=== PATIENT | female | born 1965 | race Hispanic/Latino ===

== ENCOUNTER 2021-08-19 12:15 | Inpatient (IN) | payer MEDICARE ==
--- NOTE | 2021-08-20 09:13 | History and Physical Report ---
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 PAST PSYCHIATRIC HISTORY: Diagnoses: bipolar Suicide attempts or Self-harm behavior: yes Prior psychiatric hospitalizations: yes Substance Abuse history: denies Previous psychiatric medications tried: latuda, invega Outpatient treatment: yes PAST MEDICAL HISTORY: None reported or document Family Psychiatric History: None reported or documented SOCIAL HISTORY Marital Status: Living Arrangements: lives alone with act team Employment Status: Disabled Access to guns/weapons: Denies Education: History of Abuse: Denies Legal History: unknown REVIEW OF SYSTEMS Constitutional: Negative for weight loss ENT: Negative for stridor Respiratory: Negative for cough or hemoptysis All other systems reviewed and are negative MENTAL STATUS EXAMINATION General Appearance and Behavior: Age appropriate, good hygiene, wearing appropriate clothes. calm, cooperative, fair eye contact Cooperation: Cooperative Psychomotor Behavior: Psychomotor normal Mood: depressed Affect and affective range: Congruent with stated mood Thought Process: goal directed Thought Content: None Speech: normal tone and pace Suicidal Ideation: Yes Homicidal Ideation:Denies Hallucinations: auditory Delusions: None elicited Impulse Control: limited Insight and Judgment: Limited Memory: Limited Attention: attentive Orientation: a/o Assessment (1) Bipolar Disorder Treatment Plan Patient admitted for inpatient psychiatric evaluation, medication adjustment and close monitoring The patient's behavior, mood, sleep and appetite will be closely monitored. Patient enrolled in individual and group therapeutic sessions and encouraged to attend. Patient provided with a safe and structured environment. Patient's physical health needs will be addressed by the Hospitalist. Hospitalist Consulted Labs including CBC, CMP, Lipid profile and Hemoglobin A1C levels ordered for baseline reference Social Assessment will be completed and the Patient Clerical Assistant will work with patient and family to ensure a suitable and safe disposition Medication adjustment will be made as clinically indicated Restart home meds Usual Wellness Taoist/Preservation: - Start Trazodone 50 mg po QHS & 50 mg po QHS PRN between 10 PM & 2 AM for insomnia - Start Melatonin 5 mg po QHS to promote circadian rhythm The patient agreed on the treatment plan, understood the risk, benefit, alternative treatment, potential consequence of no treatment, and gave informed consent. Estimated days: 7 Post hospital care: primary care provider, psychiatric provider Case staffed with Dr. Ortiz Legal Status: Voluntary Reaction to Hospitalization: Accepting Medications and Allergies Allergies Allergy/AdvReac Type Severity Reaction Status Date / Time codeine Allergy Unknown Unverified 08/19/21 12:23 Sulfa (Sulfonamide Allergy Unknown Unverified 08/19/21 12:23 Antibiotics) Results - Results Labs/Vitals: Laboratory Last Values POC Glucose 184 mg/dL (70-105) H 08/20/21 06:44 Last Vital Signs Temp 98.9 F 08/20/21 00:37 Pulse 108 H 08/20/21 00:37 Resp 18 08/20/21 00:37 BP 113/71 08/20/21 00:37 Pulse Ox 95 08/20/21 00:37 Physical Examination - Constitutional Vitals: Vital Signs Temp Pulse Resp BP Pulse Ox 98.9 F 108 H 18 113/71 95 08/20/21 00:37 08/20/21 00:37 08/20/21 00:37 08/20/21 00:37 08/20/21 00:37 Temperature -Last 24 Hours Temperature 98.9 F Mental Status Exam - Vital signs Last Vital Signs Temp 98.9 F 08/20/21 00:37 Pulse 108 H 08/20/21 00:37 Resp 18 08/20/21 00:37 BP 113/71 08/20/21 00:37 Pulse Ox 95 08/20/21 00:37 Physician Certification - Certification Statement Physician Certification Statement: This is an acknowledgement statement that SHERRIE ORTIZ is a 56 year old F who requires inpatient psychiatric admission for treatment which could r easonably be expected to improve the patient's condition for Estimated period of time patient will need to remain in the hospital: [ ] Plan for post-hospital care: [ ]
[2021-08-20] MEDS ORDERED: FLU VACC QUAD 2021-22(6MOS UP)/PF 60 MCG/0.5 ML SYRINGE IM ONE ×2 (12:00→14:15)
[2021-08-20] MEDS ORDERED: DEXTROSE 50% IN WATER (25GM) 50 ML SYRINGE IV PRN (12:26)
--- NOTE | 2021-08-20 12:26 | Consultation ---
History of Present Illness - Reason for Consult Consult date: 08/20/21 Medical management Requesting physician: DARRIUS WALKER - History of Present Illness 56 YO Female with DM, HTN, Hypothyroidism, Obesity Hypoventilation Syndrome, CKD admitted to [facility] for psychiatric stabilization. Consult placed by Dr. Walker for medical management. Patient seen and evaluated in the recreation room. No reported nursing events. Patient denies fever, chills, chest pain, palpitation, productive cough, skin rash, recent contact, or known exposure to COVID-19. Patient denies pain. Past History Past Medical History: diabetes, hypertension, renal failure, other (See HPI) Past Surgical History: , Other (ablation) Social history: single. denies: smoking, alcohol abuse Family history: diabetes, hypertension Medications and Allergies Allergies Allergy/AdvReac Type Severity Reaction Status Date / Time codeine Allergy Unknown Unverified 08/19/21 12:23 Sulfa (Sulfonamide Allergy Unknown Unverified 08/19/21 12:23 Antibiotics) Review of Systems Constitutional: no weight loss, no weight gain, no fever, no chills Ears, nose, mouth and throat: no ear discharge, no tinnitis, no nose pain, no nasal discharge Breasts: no change in shape, no swelling, no mass Cardiovascular: no chest pain, no palpitations, no edema Respiratory: no cough, no excessive sputum, no shortness of breath Gastrointestinal: no abdominal pain, no vomiting Genitourinary Female: no pelvic pain, no flank pain Musculoskeletal: no neck stiffness, no neck pain, no arm numbness/tingling, no shooting leg pain Integumentary: no rash, no redness, no wounds, no boils Neurological: no head injury, no weakness, no parathesias, no tingling, no syncope Psychiatric: no anxiety Endocrine: no cold intolerance, no heat intolerance, no polyphagia Hematologic/Lymphatic: no easy bruising Exam - Constitutional Vitals: Temp Pulse Resp BP Pulse Ox 98.9 F 108 H 18 113/71 95 08/20/21 00:37 08/20/21 00:37 08/20/21 00:37 08/20/21 00:37 08/20/21 00:37 General appearance: Present: no acute distress, well-nourished - EENT Eyes: Present: PERRL ENT: hearing intact, clear oral mucosa - Neck Neck: Present: supple, normal ROM - Respiratory Respiratory effort: normal Respiratory: bilateral: CTA - Cardiovascular Heart Sounds: Present: S1 & S2. Absent: rub, click - Extremities Extremities: pulses symmetrical, No edema Peripheral Pulses: within normal limits - Abdominal General gastrointestinal: Present: soft, non-tender, non-distended, normal bowel sounds Female genitourinary: Present: normal - Integumentary Integumentary: Present: clear, warm, dry - Musculoskeletal Musculoskeletal: gait normal, strength equal bilaterally - Psychiatric Psychiatric: appropriate mood/affect, intact judgment & insight - Neurologic Neurologic: CNII-XII intact, moves all extremities Results - Labs Labs: Abnormal lab results 08/20/21 08/20/21 08/20/21 Range/Units 02:37 06:44 11:34 POC Glucose 161 H 184 H 322 H (70-105) mg/dL Assessment and Plan - Patient Problems (1) Hypertension Current Visit: Yes Status: Acute Qualifiers: Hypertension type: primary hypertension Qualified Code(s): I10 - Essential (primary) hypertension Plan to address problem: Monitor blood pressure every shift, continue medical management. (2) Diabetes Current Visit: Yes Status: Acute Plan to address problem: Consistent carbohydrate diet, sliding scale insulin therapy, Accu-Chek, hypoglycemia protocol, (3) Obesity hypoventilation syndrome Current Visit: Yes Status: Acute Plan to address problem: Balanced diet, increase physical activity discharge, outpatient pulmonary follow-up for sleep study, CPAP nightly (4) Hypothyroidism Current Visit: Yes Status: Acute Plan to address problem: Continue prehospital Synthroid therapy. (5) CKD (chronic kidney disease) Current Visit: Yes Status: Acute Plan to address problem: Outpatient nephrology follow-up, diabetes control.
[2021-08-20] MEDS: INSULIN LISPRO 100 UNIT/ML SUB-Q SCH ×2 (12:47→20:02)
[2021-08-21] MEDS: INSULIN LISPRO 100 UNIT/ML SUB-Q SCH ×5 (03:38→21:43)
--- NOTE | 2021-08-21 08:02 | Progress Note ---
Subjective Date of service: 08/21/21 Subjective Comment: The patient was seen in her room, she reports doing well. She reports that she is worried about her heart pills and blood thinner."She reports sleep and appetitie as good. She continues to endorse auditory hallucinations " I still hear whispers. She denies suicidal/homicidal hallucinations. SOCIAL HISTORY Marital Status: Living Arrangements: lives alone with act team Employment Status: Disabled Access to guns/weapons: Denies Education: History of Abuse: Denies Legal History: unknown REVIEW OF SYSTEMS Constitutional: Negative for weight loss ENT: Negative for stridor Respiratory: Negative for cough or hemoptysis All other systems reviewed and are negative MENTAL STATUS EXAMINATION General Appearance and Behavior: Age appropriate, good hygiene, wearing appropriate clothes. calm, cooperative, fair eye contact Cooperation: Cooperative Psychomotor Behavior: Psychomotor normal Mood: depressed Affect and affective range: Congruent with stated mood Thought Process: goal directed Thought Content: Not suicidal Speech: normal tone and pace Suicidal Ideation: Denies Homicidal Ideation:Denies Hallucinations: auditory Delusions: None elicited Impulse Control: limited Insight and Judgment: Limited Memory: Limited Attention: attentive Orientation: a/o Assessment (1) Bipolar Disorder Treatment Plan Patient admitted for inpatient psychiatric evaluation, medication adjustment and close monitoring The patient's behavior, mood, sleep and appetite will be closely monitored. Patient enrolled in individual and group therapeutic sessions and encouraged to attend. Patient provided with a safe and structured environment. Patient's physical health needs will be addressed by the Hospitalist. Hospitalist Consulted Labs including CBC, CMP, Lipid profile and Hemoglobin A1C levels ordered for baseline reference Social Assessment will be completed and the Communications Lead will work with pat ient and family to ensure a suitable and safe disposition Medication adjustment will be made as clinically indicated Continue home meds Usual Wellness Restorationism/Preservation: - Start Trazodone 50 mg po QHS & 50 mg po QHS PRN between 10 PM & 2 AM for insomnia - Start Melatonin 5 mg po QHS to promote circadian rhythm The patient agreed on the treatment plan, understood the risk, benefit, alternative treatment, potential consequence of no treatment, and gave informed consent. Estimated days: 6 Post hospital care: primary care provider, psychiatric provider Case staffed with Dr. Ortiz Legal Status: Voluntary Reaction to Hospitalization: Accepting Medications and Allergies Medications and Allergies Allergies Allergy/AdvReac Type Severity Reaction Status Date / Time codeine Allergy Mild Nausea Verified 08/21/21 03:51 Sulfa (Sulfonamide Allergy Mild Nausea Verified 08/21/21 03:51 Antibiotics) Home Medications Medication Instructions Recorded Confirmed Last Taken Type Apixaban [Eliquis] 5 mg PO BID 08/21/21 08/21/21 Unknown History Diltiazem HCl [Diltiazem 12Hr ER] 60 mg PO BID 08/21/21 08/21/21 Unknown History Docusate Sodium [Colace] 100 mg PO BID PRN 08/21/21 08/21/21 Unknown History Duloxetine HCl [Drizalma Sprinkle] 60 mg PO BID 08/21/21 08/21/21 Unknown History Furosemide [Lasix] 40 mg PO DAILY 08/21/21 08/21/21 Unknown History Gabapentin [Neurontin] 300 mg PO Q8HR 08/21/21 08/21/21 Unknown History Levothyroxine [Synthroid] 100 mcg PO QAM 08/21/21 08/21/21 Unknown History Lurasidone HCl [Latuda] 60 mg PO DAILY 08/21/21 08/21/21 Unknown History Metformin HCl [Metformin HCl ER] 750 mg PO DAILY 08/21/21 08/21/21 Unknown History Metoprolol [Lopressor TAB] 50 mg PO BID 08/21/21 08/21/21 Unknown History Mirtazapine [Remeron] 15 mg PO HS 08/21/21 08/21/21 Unknown History Nystatin Cream [Mycostatin Cream] 1 applic TP BID 08/21/21 08/21/21 Unknown History Rosuvastatin Calcium [Crestor] 10 mg PO HS 08/21/21 08/21/21 Unknown History lamoTRIgine [LaMICtal] 200 mg PO BID 08/21/21 08/21/21 Unknown History traZODone [Desyrel] 100 mg PO QHS 08/21/21 08/21/21 Unknown History trihexyphenidyL [Artane Tab] 2 mg PO DAILY 08/21/21 08/21/21 Unknown History Active Meds: Active Medications Dextrose (Dextrose 50% In Water (25gm) 50 Ml Syringe) 50 ml IV Q30MIN PRN; Protocol PRN Reason: Hypoglycemia Insulin Human Lispro (Insulin Lispro 100 Unit/Ml) 0 unit SUB-Q Q6HR REBECA; Protocol Last Admin: 08/21/21 06:05 Dose: 8 unit Documented by: Results - Results Labs/Vitals: Laboratory Last Values POC Glucose 368 mg/dL (70-105) H 08/21/21 05:47 Last Vital Signs Temp 98.2 F 08/20/21 19:41 Pulse 68 08/20/21 23:30 Resp 18 08/20/21 23:30 BP 148/86 08/20/21 19:41 Pulse Ox 96 08/20/21 23:30
[2021-08-21 09:27] LABS: Basophils # (Auto) 0.1 K/mm3 (0.0-0.1); Basophils % (Auto) 0.8 % (0.0-1.8); Eosinophils # (Auto) 0.3 K/mm3 (0.0-0.4); Eosinophils % (Auto) 5.5 % (0.0-4.3); Hematocrit 40.2 % (30.3-42.9); Hemoglobin 13.7 gm/dl (10.1-14.3); Lymphocytes # (Auto) 1.4 K/mm3 (1.2-5.4); Lymphocytes % (Auto) 21.7 % (13.4-35.0); Mean Corpuscular HGB Conc 34 % (30-34); Mean Corpuscular Volume 85 fl (79-97); Monocytes # (Auto) 0.4 K/mm3 (0.0-0.8); Platelet Count 202 K/mm3 (140-440); Red Blood Count 4.75 M/mm3 (3.65-5.03); Red Cell Distribution Width 15.2 % (13.2-15.2)
[2021-08-21 09:55] LABS: Alanine Aminotransferase 14 units/L (7-56); Albumin 4.1 g/dL (3.9-5); BUN/Creatinine Ratio 26; Blood Urea Nitrogen 21 mg/dL (7-17); Calcium 10.1 mg/dL (8.4-10.2); Chol/HDL Ratio 4.34 %; HDL Cholesterol 52 mg/dL (40-59); Hemolysis Index 2; LDL Cholesterol,Direct 147 mg/dL (50-130)
[2021-08-21] MEDS ORDERED: LURASIDONE HCL 60 MG PO SCH (10:00)
[2021-08-21] MEDS ORDERED: NON-FORMULARY EACH (Duloxetine Hcl [Drizalma Sprinkle] 60 MG Cap.Dr.Spr) PO SCH (10:00)
[2021-08-21] MEDS ORDERED: METFORMIN HCL 750 MG PO SCH (10:00)
[2021-08-21] MEDS ORDERED: DILTIAZEM HCL 60 MG PO SCH (10:00)
[2021-08-21] MEDS ORDERED: NON-FORMULARY EACH (Lamotrigine [Lamictal] 200 MG Tablet) PO SCH (10:00)
[2021-08-21] MEDS ORDERED: NON-FORMULARY EACH (Apixaban 5 MG Tablet) PO SCH (10:00)
[2021-08-21] MEDS ORDERED: DOCUSATE SODIUM 100 MG CAP PO PRN (10:00)
[2021-08-21] MEDS: METOPROLOL TARTRATE 50 MG TAB PO SCH ×2 (10:01→21:38)
[2021-08-21] MEDS: FUROSEMIDE 40 MG TAB PO SCH (10:03)
[2021-08-21] MEDS: NYSTATIN CREAM 15 GM TUBE TP SCH ×2 (10:03→21:36)
[2021-08-21] MEDS: lamoTRIgine 100 MG TAB PO SCH ×2 (10:04→21:36)
[2021-08-21] MEDS ORDERED: LORazepam 2 MG/ML VIAL IV PRN (11:03)
[2021-08-21] MEDS ORDERED: HALOPERIDOL LACTATE 5 MG/1 ML INJ IM PRN (11:12)
[2021-08-21] MEDS: GABAPENTIN 300 MG CAP PO SCH ×2 (13:16→21:36)
[2021-08-21] MEDS: TRIHEXYPHENIDYL 2 MG TAB PO SCH (13:16)
[2021-08-21] MEDS: dilTIAZem 60 MG TAB PO SCH ×2 (13:16→21:37)
[2021-08-21] MEDS: DULoxetine 30 MG CAP PO SCH ×2 (13:16→21:35)
[2021-08-21] MEDS: APIXABAN 5 MG TAB PO SCH ×2 (13:24→21:36)
[2021-08-21] MEDS: metFORMIN 500 MG TAB PO SCH (13:28)
[2021-08-21] MEDS: MIRTAZAPINE 15 MG TAB PO SCH (21:36)
[2021-08-21] MEDS: traZODone 100 MG TAB PO SCH (21:39)
[2021-08-21] MEDS ORDERED: NON-FORMULARY EACH (Rosuvastatin Calcium [Crestor] 10 MG Tablet) PO SCH (22:00)
[2021-08-22] MEDS: INSULIN LISPRO 100 UNIT/ML SUB-Q SCH ×5 (02:21→22:14)
[2021-08-22] MEDS: LEVOTHYROXINE 100 MCG TAB PO SCH (05:02)
[2021-08-22] MEDS: GABAPENTIN 300 MG CAP PO SCH ×3 (05:02→21:23)
--- NOTE | 2021-08-22 08:53 | Progress Note ---
Subjective Date of service: 08/22/21 Subjective Comment: 08/21/2021:The patient was seen in her room, she reports doing well. She reports that she is worried about her heart pills and blood thinner."She reports sleep and appetitie as good. She continues to endorse auditory hallucinations " I still hear whispers. She denies suicidal/homicidal hallucinations. 08/22/2021: The patient was seen socializing with peers at breakfast. She states she received her monthly Abilify Maintenna BASSETT through the ACT team; last had it a couple of days prior to this admission. The patient reports that she feels better, states sleep and appetite as good. The patient states mood as "ok". She denies any current suicidal/homicidal ideation and denies hallucinations. SOCIAL HISTORY Marital Status: Living Arrangements: lives alone with act team Employment Status: Disabled Access to guns/weapons: Denies Education: History of Abuse: Denies Legal History: unknown REVIEW OF SYSTEMS Constitutional: Negative for weight loss ENT: Negative for stridor Respiratory: Negative for cough or hemoptysis All other systems reviewed and are negative MENTAL STATUS EXAMINATION General Appearance and Behavior: Age appropriate, good hygiene, wearing appropriate clothes. calm, cooperative, fair eye contact Cooperation: Cooperative Psychomotor Behavior: Psychomotor normal Mood: "ok" Affect and affective range: Congruent with stated mood Thought Process: goal directed Thought Content: Not suicidal Speech: normal tone and pace Suicidal Ideation: Denies Homicidal Ideation:Denies Hallucinations: Denies Delusions: None elicited Impulse Control: limited Insight and Judgment: Limited Memory: Limited Attention: attentive Orientation: a/o Assessment (1) Bipolar Disorder Treatment Plan Patient admitted for inpatient psychiatric evaluation, medication adjustment and close monitoring The patient's behavior, mood, sleep and appetite will be closely monitored. Patient enrolled in individual and group therapeutic sessions and encouraged to attend. Patient provided with a safe and structured environment. Patient's physical health needs will be addressed by the Hospitalist. Hospitalist Consulted Labs including CBC, CMP, Lipid profile and Hemoglobin A1C levels ordered for baseline reference Social Assessment will be completed and the Preload Supervisor will work with patient and family to ensure a suitable and safe disposition Medication adjustment will be made as clinically indicated Continue home meds Usual Wellness Jew/Preservation: - Start Trazodone 50 mg po QHS & 50 mg po QHS PRN between 10 PM & 2 AM for insomnia - Start Melatonin 5 mg po QHS to promote circadian rhythm The patient agreed on the treatment plan, understood the risk, benefit, alternative treatment, potential consequence of no treatment, and gave informed consent. Estimated days: 5 Post hospital care: primary care provider, psychiatric provider Case staffed with Dr. Ortiz Legal Status: Voluntary Reaction to Hospitalization: Accepting Medications and Allergies Medications and Allergies Allergies Allergy/AdvReac Type Severity Reaction Status Date / Time codeine Allergy Mild Nausea Verified 08/21/21 03:51 Sulfa (Sulfonamide Allergy Mild Nausea Verified 08/21/21 03:51 Antibiotics) Home Medications Medication Instructions Recorded Confirmed Last Taken Type Apixaban [Eliquis] 5 mg PO BID 08/21/21 08/21/21 Unknown History Diltiazem HCl [Diltiazem 12Hr ER] 60 mg PO BID 08/21/21 08/21/21 Unknown History Docusate Sodium [Colace] 100 mg PO BID PRN 08/21/21 08/21/21 Unknown History Duloxetine HCl [Drizalma Sprinkle] 60 mg PO BID 08/21/21 08/21/21 Unknown History Furosemide [Lasix] 40 mg PO DAILY 08/21/21 08/21/21 Unknown History Gabapentin [Neurontin] 300 mg PO Q8HR 08/21/21 08/21/21 Unknown History Levothyroxine [Synthroid] 100 mcg PO QAM 08/21/21 08/21/21 Unknown History Lurasidone HCl [Latuda] 60 mg PO DAILY 08/21/21 08/21/21 Unknown History Metformin HCl [Metformin HCl ER] 750 mg PO DAILY 08/21/21 08/21/21 Unknown History Metoprolol [Lopressor TAB] 50 mg PO BID 08/21/21 08/21/21 Unknown History Mirtazapine [Remeron] 15 mg PO HS 08/21/21 08/21/21 Unknown History Nystatin Cream [Mycostatin Cream] 1 applic TP BID 08/21/21 08/21/21 Unknown History Rosuvastatin Calcium [Crestor] 10 mg PO HS 08/21/21 08/21/21 Unknown History lamoTRIgine [LaMICtal] 200 mg PO BID 08/21/21 08/21/21 Unknown History traZODone [Desyrel] 100 mg PO QHS 08/21/21 08/21/21 Unknown History trihexyphenidyL [Artane Tab] 2 mg PO DAILY 08/21/21 08/21/21 Unknown History Active Meds: Active Medications Apixaban (Apixaban 5 Mg Tab) 5 mg PO BID [facility] Last Admin: 08/21/21 21:36 Dose: 5 mg Documented by: Atorvastatin Calcium (Atorvastatin 20 Mg Tab) 20 mg PO QHS [facility] Last Admin: 08/21/21 21:37 Dose: 20 mg Documented by: Dextrose (Dextrose 50% In Water (25gm) 50 Ml Syringe) 50 ml IV Q30MIN PRN; Protocol PRN Reason: Hypoglycemia Diltiazem HCl (Diltiazem 60 Mg Tab) 60 mg PO BID [facility] Last Admin: 08/21/21 21:37 Dose: 60 mg Documented by: Docusate Sodium (Docusate Sodium 100 Mg Cap) 100 mg PO BID PRN PRN Reason: Constipation Duloxetine HCl (Duloxetine 30 Mg Cap) 60 mg PO BID [facility] Last Admin: 08/21/21 21:35 Dose: 60 mg Documented by: Furosemide (Furosemide 40 Mg Tab) 40 mg PO DAILY [facility] Last Admin: 08/21/21 10:03 Dose: 40 mg Documented by: Gabapentin (Gabapentin 300 Mg Cap) 300 mg PO Q8HR [facility] Last Admin: 08/22/21 05:02 Dose: 300 mg Documented by: Haloperidol Lactate (Haloperidol Lactate 5 Mg/1 Ml Inj) 5 mg IM Q6H PRN PRN Reason: Agitation Last Admin: 08/21/21 11:30 Dose: 5 mg Documented by: Insulin Human Lispro (Insulin Lispro 100 Unit/Ml) 0 unit SUB-Q Q6H [facility]; Protocol Last Admin: 08/22/21 02:21 Dose: 10 unit Documented by: Lamotrigine (Lamotrigine 100 Mg Tab) 200 mg PO BID [facility] Last Admin: 08/21/21 21:36 Dose: 200 mg Documented by: Levothyroxine Sodium (Levothyroxine 100 Mcg Tab) 100 mcg PO DAILY@0600 [facility] Last Admin: 08/22/21 05:02 Dose: 100 mcg Documented by: Lorazepam (Lorazepam 2 Mg/Ml Vial) 2 mg IV Q4H PRN PRN Reason: Agitation Last Admin: 08/21/21 11:30 Dose: 2 mg Documented by: Metformin HCl (Metformin 500 Mg Tab) 750 mg PO QDAY [facility] Last Admin: 08/21/21 13:28 Dose: 750 mg Documented by: Metoprolol Tartrate (Metoprolol Tartrate 50 Mg Tab) 50 mg PO BID [facility] Last Admin: 08/21/21 21:38 Dose: 50 mg Documented by: Mirtazapine (Mirtazapine 15 Mg Tab) 15 mg PO HS [facility] Last Admin: 08/21/21 21:36 Dose: 15 mg Documented by: Miscellaneous Medication (Latuda 60 Mg Tab) 1 each PO QDAY [facility] Nystatin (Nystatin Cream 15 Gm Tube) 1 applic TP BID [facility] Last Admin: 08/21/21 21:36 Dose: Not Given Documented by: Trazodone HCl (Trazodone 100 Mg Tab) 100 mg PO QHS [facility] Last Admin: 08/21/21 21:39 Dose: 100 mg Documented by: Trihexyphenidyl HCl (Trihexyphenidyl 2 Mg Tab) 2 mg PO DAILY [facility] Last Admin: 08/21/21 13:16 Dose: 2 mg Documented by: Results - Results Labs/Vitals: Laboratory Last Values WBC 6.3 K/mm3 (4.5-11.0) 08/21/21 08:46 RBC 4.75 M/mm3 (3.65-5.03) 08/21/21 08:46 Hgb 13.7 gm/dl (10.1-14.3) 08/21/21 08:46 Hct 40.2 % (30.3-42.9) 08/21/21 08:46 MCV 85 fl (79-97) 08/21/21 08:46 MCH 29 pg (28-32) 08/21/21 08:46 MCHC 34 % (30-34) 08/21/21 08:46 RDW 15.2 % (13.2-15.2) 08/21/21 08:46 Plt Count 202 K/mm3 (140-440) 08/21/21 08:46 Lymph % (Auto) 21.7 % (13.4-35.0) 08/21/21 08:46 [place] % (Auto) 7.0 % (0.0-7.3) 08/21/21 08:46 Eos % (Auto) 5.5 % (0.0-4.3) H 08/21/21 08:46 Baso % (Auto) 0.8 % (0.0-1.8) 08/21/21 08:46 Lymph # (Auto) 1.4 K/mm3 (1.2-5.4) 08/21/21 08:46 [place] # (Auto) 0.4 K/mm3 (0.0-0.8) 08/21/21 08:46 Eos # (Auto) 0.3 K/mm3 (0.0-0.4) 08/21/21 08:46 Baso # (Auto) 0.1 K/mm3 (0.0-0.1) 08/21/21 08:46 Seg Neutrophils % 65.0 % (40.0-70.0) 08/21/21 08:46 Seg Neutrophils # 4.1 K/mm3 (1.8-7.7) 08/21/21 08:46 Sodium 139 mmol/L (137-145) 08/21/21 08:46 Potassium 5.6 mmol/L (3.6-5.0) H 08/21/21 08:46 Chloride 97.6 mmol/L (98-107) L 08/21/21 08:46 Carbon Dioxide 27 mmol/L (22-30) 08/21/21 08:46 Anion Gap 20 mmol/L 08/21/21 08:46 BUN 21 mg/dL (7-17) H 08/21/21 08:46 Creatinine 0.8 mg/dL (0.6-1.2) 08/21/21 08:46 Estimated GFR > 60 ml/min 08/21/21 08:46 BUN/Creatinine Ratio 26 % 08/21/21 08:46 Glucose 355 mg/dL (65-100) H 08/21/21 08:46 POC Glucose 314 mg/dL (70-105) H 08/22/21 06:23 Hemoglobin A1c 10.6 % (4-6) H 08/21/21 08:42 Calcium 10.1 mg/dL (8.4-10.2) 08/21/21 08:46 Total Bilirubin 0.40 mg/dL (0.1-1.2) 08/21/21 08:46 AST 14 units/L (5-40) 08/21/21 08:46 ALT 14 units/L (7-56) 08/21/21 08:46 Alkaline Phosphatase 124 units/L (35-129) 08/21/21 08:46 Total Protein 7.6 g/dL (6.3-8.2) 08/21/21 08:46 Albumin 4.1 g/dL (3.9-5) 08/21/21 08:46 Albumin/Globulin Ratio 1.2 % 08/21/21 08:46 Triglycerides 165 mg/dL (2-149) H 08/21/21 08:46 Cholesterol 226 mg/dL (50-199) H 08/21/21 08:46 LDL Cholesterol Direct 147 mg/dL (50-130) H 08/21/21 08:46 HDL Cholesterol 52 mg/dL (40-59) 08/21/21 08:46 Cholesterol/HDL Ratio 4.34 % 08/21/21 08:46 TSH 1.270 mlU/mL (0.270-4.200) 08/21/21 08:46 Last Vital Signs Temp 98.3 F 08/21/21 22:50 Pulse 82 08/21/21 21:38 Resp 16 08/21/21 19:41 BP 126/70 08/21/21 21:38 Pulse Ox 95 08/21/21 19:41
[2021-08-22] MEDS: DULoxetine 30 MG CAP PO SCH ×2 (09:24→21:22)
[2021-08-22] MEDS: metFORMIN 500 MG TAB PO SCH (09:24)
[2021-08-22] MEDS: APIXABAN 5 MG TAB PO SCH ×2 (09:25→21:23)
[2021-08-22] MEDS: METOPROLOL TARTRATE 50 MG TAB PO SCH ×2 (09:25→21:24)
[2021-08-22] MEDS: lamoTRIgine 100 MG TAB PO SCH ×2 (09:25→21:23)
[2021-08-22] MEDS: FUROSEMIDE 40 MG TAB PO SCH (09:26)
[2021-08-22] MEDS: LATUDA 60 MG PO SCH (09:26)
[2021-08-22] MEDS: TRIHEXYPHENIDYL 2 MG TAB PO SCH (11:06)
[2021-08-22] MEDS: NYSTATIN CREAM 15 GM TUBE TP SCH ×2 (11:06→21:24)
[2021-08-22] MEDS: dilTIAZem 60 MG TAB PO SCH ×2 (11:11→21:19)
[2021-08-22] MEDS ORDERED: INSULIN GLARGINE 100 UNITS/ML SUB-Q SCH ×2 (12:00→22:36)
[2021-08-22] MEDS: traZODone 100 MG TAB PO SCH (21:22)
[2021-08-22] MEDS: MIRTAZAPINE 15 MG TAB PO SCH (21:24)
[2021-08-23] MEDS: LEVOTHYROXINE 100 MCG TAB PO SCH (06:52)
[2021-08-23] MEDS: GABAPENTIN 300 MG CAP PO SCH ×3 (06:52→22:10)
[2021-08-23] MEDS: INSULIN LISPRO 100 UNIT/ML SUB-Q SCH ×3 (07:05→22:07)
--- NOTE | 2021-08-23 07:54 | Progress Note ---
Subjective Date of service: 08/23/21 Subjective Comment: 08/21/2021:The patient was seen in her room, she reports doing well. She reports that she is worried about her heart pills and blood thinner."She reports sleep and appetitie as good. She continues to endorse auditory hallucinations " I s till hear whispers. She denies suicidal/homicidal hallucinations. 08/22/2021: The patient was seen socializing with peers at breakfast. She states she received her monthly Abilify Maintenna BASSETT through the ACT team; last had it a couple of days prior to this admission. The patient reports that she feels better, states sleep and appetite as good. The patient states mood as "ok". She denies any current suicidal/homicidal ideation and denies hallucinations. 08/23/2021: The patient was seen eating breakfast. She reports feeling better. She denies any current suicidal/homicidal ideation and denies hallucinations. SOCIAL HISTORY Marital Status: Living Arrangements: lives alone with act team Employment Status: Disabled Access to guns/weapons: Denies Education: History of Abuse: Denies Legal History: unknown REVIEW OF SYSTEMS Constitutional: Negative for weight loss ENT: Negative for stridor Respiratory: Negative for cough or hemoptysis All other systems reviewed and are negative MENTAL STATUS EXAMINATION General Appearance and Behavior: Age appropriate, good hygiene, wearing appropriate clothes. calm, cooperative, fair eye contact Cooperation: Cooperative Psychomotor Behavior: Psychomotor normal Mood: "good" Affect and affective range: Congruent with stated mood Thought Process: goal directed Thought Content: Not suicidal Speech: normal tone and pace Suicidal Ideation: Denies Homicidal Ideation:Denies Hallucinations: Denies Delusions: None elicited Impulse Control: limited Insight and Judgment: Limited Memory: Limited Attention: attentive Orientation: a/o Assessment (1) Bipolar Disorder Treatment Plan Patient admitted for inpatient psychiatric evaluation, medication adjustment and close monitoring The patient's behavior, mood, sleep and appetite will be closely monitored. Patient enrolled in individual and group therapeutic sessions and encouraged to attend. Patient provided with a safe and structured environment. Patient's physical health needs will be addressed by the Hospitalist. Hospitalist Consulted Labs including CBC, CMP, Lipid profile and Hemoglobin A1C levels ordered for baseline reference Social Assessment will be completed and the [facility] will work with patient and family to ensure a suitable and safe disposition Medication adjustment will be made as clinically indicated Continue home meds Usual Wellness [employer]ostalism/Preservation: - Start Trazodone 50 mg po QHS & 50 mg po QHS PRN between 10 PM & 2 AM for insomnia - Start Melatonin 5 mg po QHS to promote circadian rhythm The patient agreed on the treatment plan, understood the risk, benefit, alternative treatment, potential consequence of no treatment, and gave informed consent. Estimated days: 5 Post hospital care: primary care provider, psychiatric provider Case staffed with Dr. Ortiz Legal Status: Voluntary Reaction to Hospitalization: Accepting Medications and Allergies Medications and Allergies Allergies Allergy/AdvReac Type Severity Reaction Status Date / Time codeine Allergy Mild Nausea Verified 08/21/21 03:51 Sulfa (Sulfonamide Allergy Mild Nausea Verified 08/21/21 03:51 Antibiotics) Home Medications Medication Instructions Recorded Confirmed Last Taken Type Apixaban [Eliquis] 5 mg PO BID 08/21/21 08/21/21 Unknown History Diltiazem HCl [Diltiazem 12Hr ER] 60 mg PO BID 08/21/21 08/21/21 Unknown History Docusate Sodium [Colace] 100 mg PO BID PRN 08/21/21 08/21/21 Unknown History Duloxetine HCl [Drizalma Sprinkle] 60 mg PO BID 08/21/21 08/21/21 Unknown History Furosemide [Lasix] 40 mg PO DAILY 08/21/21 08/21/21 Unknown History Gabapentin [Neurontin] 300 mg PO Q8HR 08/21/21 08/21/21 Unknown History Levothyroxine [Synthroid] 100 mcg PO QAM 08/21/21 08/21/21 Unknown History Lurasidone HCl [Latuda] 60 mg PO DAILY 08/21/21 08/21/21 Unknown History Metformin HCl [Metformin HCl ER] 750 mg PO DAILY 08/21/21 08/21/21 Unknown History Metoprolol [Lopressor TAB] 50 mg PO BID 08/21/21 08/21/21 Unknown History Mirtazapine [Remeron] 15 mg PO HS 08/21/21 08/21/21 Unknown History Nystatin Cream [Mycostatin Cream] 1 applic TP BID 08/21/21 08/21/21 Unknown History Rosuvastatin Calcium [Crestor] 10 mg PO HS 08/21/21 08/21/21 Unknown History lamoTRIgine [LaMICtal] 200 mg PO BID 08/21/21 08/21/21 Unknown History traZODone [Desyrel] 100 mg PO QHS 08/21/21 08/21/21 Unknown History trihexyphenidyL [Artane Tab] 2 mg PO DAILY 08/21/21 08/21/21 Unknown History Active Meds: Active Medications Apixaban (Apixaban 5 Mg Tab) 5 mg PO BID [facility] Last Admin: 08/22/21 21:23 Dose: 5 mg Documented by: Atorvastatin Calcium (Atorvastatin 20 Mg Tab) 20 mg PO QHS [facility] Last Admin: 08/22/21 21:23 Dose: 20 mg Documented by: Dextrose (Dextrose 50% In Water (25gm) 50 Ml Syringe) 50 ml IV Q30MIN PRN; Protocol PRN Reason: Hypoglycemia Diltiazem HCl (Diltiazem 60 Mg Tab) 60 mg PO BID [facility] Last Admin: 08/22/21 21:19 Dose: 60 mg Documented by: Docusate Sodium (Docusate Sodium 100 Mg Cap) 100 mg PO BID PRN PRN Reason: Constipation Duloxetine HCl (Duloxetine 30 Mg Cap) 60 mg PO BID [facility] Last Admin: 08/22/21 21:22 Dose: 60 mg Documented by: Furosemide (Furosemide 40 Mg Tab) 40 mg PO DAILY [facility] Last Admin: 08/22/21 09:26 Dose: 40 mg Documented by: Gabapentin (Gabapentin 300 Mg Cap) 300 mg PO Q8HR [facility] Last Admin: 08/23/21 06:52 Dose: 300 mg Documented by: Haloperidol Lactate (Haloperidol Lactate 5 Mg/1 Ml Inj) 5 mg IM Q6H PRN PRN Reason: Agitation Last Admin: 08/21/21 11:30 Dose: 5 mg Documented by: Insulin Glargine (Insulin Glargine 100 Units/Ml) 45 units SUB-Q QAMDIAB [facility] Insulin Human Lispro (Insulin Lispro 100 Unit/Ml) 0 unit SUB-Q Q6H [facility]; Protocol Last Admin: 08/23/21 07:05 Dose: 10 unit Documented by: Lamotrigine (Lamotrigine 100 Mg Tab) 200 mg PO BID [facility] Last Admin: 08/22/21 21:23 Dose: 200 mg Documented by: Levothyroxine Sodium (Levothyroxine 100 Mcg Tab) 100 mcg PO DAILY@0600 [facility] Last Admin: 08/23/21 06:52 Dose: 100 mcg Documented by: Lorazepam (Lorazepam 2 Mg/Ml Vial) 2 mg IV Q4H PRN PRN Reason: Agitation Last Admin: 08/21/21 11:30 Dose: 2 mg Documented by: Metformin HCl (Metformin 500 Mg Tab) 750 mg PO QDAY [facility] Last Admin: 08/22/21 09:24 Dose: 750 mg Documented by: Metoprolol Tartrate (Metoprolol Tartrate 50 Mg Tab) 50 mg PO BID [facility] Last Admin: 08/22/21 21:24 Dose: 50 mg Documented by: Mirtazapine (Mirtazapine 15 Mg Tab) 15 mg PO HS [facility] Last Admin: 08/22/21 21:24 Dose: 15 mg Documented by: Miscellaneous Medication (Latuda 60 Mg Tab) 1 each PO QDAY [facility] Last Admin: 08/22/21 09:26 Dose: 1 each Documented by: Nystatin (Nystatin Cream 15 Gm Tube) 1 applic TP BID [facility] Last Admin: 08/22/21 21:24 Dose: 1 applic Documented by: Trazodone HCl (Trazodone 100 Mg Tab) 100 mg PO QHS [facility] Last Admin: 08/22/21 21:22 Dose: 100 mg Documented by: Trihexyphenidyl HCl (Trihexyphenidyl 2 Mg Tab) 2 mg PO DAILY [facility] Last Admin: 08/22/21 11:06 Dose: 2 mg Documented by: Results - Results Labs/Vitals: Laboratory Last Values WBC 6.3 K/mm3 (4.5-11.0) 08/21/21 08:46 RBC 4.75 M/mm3 (3.65-5.03) 08/21/21 08:46 Hgb 13.7 gm/dl (10.1-14.3) 08/21/21 08:46 Hct 40.2 % (30.3-42.9) 08/21/21 08:46 MCV 85 fl (79-97) 08/21/21 08:46 MCH 29 pg (28-32) 08/21/21 08:46 MCHC 34 % (30-34) 08/21/21 08:46 RDW 15.2 % (13.2-15.2) 08/21/21 08:46 Plt Count 202 K/mm3 (140-440) 08/21/21 08:46 Lymph % (Auto) 21.7 % (13.4-35.0) 08/21/21 08:46 [place] % (Auto) 7.0 % (0.0-7.3) 08/21/21 08:46 Eos % (Auto) 5.5 % (0.0-4.3) H 08/21/21 08:46 Baso % (Auto) 0.8 % (0.0-1.8) 08/21/21 08:46 Lymph # (Auto) 1.4 K/mm3 (1.2-5.4) 08/21/21 08:46 [place] # (Auto) 0.4 K/mm3 (0.0-0.8) 08/21/21 08:46 Eos # (Auto) 0.3 K/mm3 (0.0-0.4) 08/21/21 08:46 Baso # (Auto) 0.1 K/mm3 (0.0-0.1) 08/21/21 08:46 Seg Neutrophils % 65.0 % (40.0-70.0) 08/21/21 08:46 Seg Neutrophils # 4.1 K/mm3 (1.8-7.7) 08/21/21 08:46 Sodium 139 mmol/L (137-145) 08/21/21 08:46 Potassium 5.6 mmol/L (3.6-5.0) H 08/21/21 08:46 Chloride 97.6 mmol/L (98-107) L 08/21/21 08:46 Carbon Dioxide 27 mmol/L (22-30) 08/21/21 08:46 Anion Gap 20 mmol/L 08/21/21 08:46 BUN 21 mg/dL (7-17) H 08/21/21 08:46 Creatinine 0.8 mg/dL (0.6-1.2) 08/21/21 08:46 Estimated GFR > 60 ml/min 08/21/21 08:46 BUN/Creatinine Ratio 26 % 08/21/21 08:46 Glucose 355 mg/dL (65-100) H 08/21/21 08:46 POC Glucose 423 mg/dL (70-105) H 08/23/21 07:00 Hemoglobin A1c 10.6 % (4-6) H 08/21/21 08:42 Calcium 10.1 mg/dL (8.4-10.2) 08/21/21 08:46 Total Bilirubin 0.40 mg/dL (0.1-1.2) 08/21/21 08:46 AST 14 units/L (5-40) 08/21/21 08:46 ALT 14 units/L (7-56) 08/21/21 08:46 Alkaline Phosphatase 124 units/L (35-129) 08/21/21 08:46 Total Protein 7.6 g/dL (6.3-8.2) 08/21/21 08:46 Albumin 4.1 g/dL (3.9-5) 08/21/21 08:46 Albumin/Globulin Ratio 1.2 % 08/21/21 08:46 Triglycerides 165 mg/dL (2-149) H 08/21/21 08:46 Cholesterol 226 mg/dL (50-199) H 08/21/21 08:46 LDL Cholesterol Direct 147 mg/dL (50-130) H 08/21/21 08:46 HDL Cholesterol 52 mg/dL (40-59) 08/21/21 08:46 Cholesterol/HDL Ratio 4.34 % 08/21/21 08:46 TSH 1.270 mlU/mL (0.270-4.200) 08/21/21 08:46 Last Vital Signs Temp 98.6 F 08/22/21 19:35 Pulse 81 08/23/21 04:00 Resp 20 08/23/21 04:00 BP 122/68 08/23/21 04:00 Pulse Ox 94 08/23/21 04:00
[2021-08-23] MEDS: FUROSEMIDE 40 MG TAB PO SCH (10:03)
[2021-08-23] MEDS: APIXABAN 5 MG TAB PO SCH ×2 (10:04→22:09)
[2021-08-23] MEDS: NYSTATIN CREAM 15 GM TUBE TP SCH ×2 (10:04→22:11)
[2021-08-23] MEDS: lamoTRIgine 100 MG TAB PO SCH ×2 (10:04→22:08)
[2021-08-23] MEDS: metFORMIN 500 MG TAB PO SCH (10:04)
[2021-08-23] MEDS: METOPROLOL TARTRATE 50 MG TAB PO SCH ×2 (10:05→22:09)
[2021-08-23] MEDS: dilTIAZem 60 MG TAB PO SCH ×2 (10:05→22:05)
[2021-08-23] MEDS: TRIHEXYPHENIDYL 2 MG TAB PO SCH (10:05)
[2021-08-23] MEDS: DULoxetine 30 MG CAP PO SCH ×2 (10:06→22:08)
[2021-08-23] MEDS: LATUDA 60 MG PO SCH (10:06)
[2021-08-23] MEDS: INSULIN GLARGINE 100 UNITS/ML SUB-Q SCH (10:12)
--- NOTE | 2021-08-23 12:31 | Progress Note ---
Assessment and Plan - Patient Problems (1) Hypertension Current Visit: Yes Status: Acute Qualifiers: Hypertension type: primary hypertension Qualified Code(s): I10 - Essential (primary) hypertension Plan to address problem: Monitor blood pressure every shift, continue medical management. (2) Diabetes Current Visit: Yes Status: Acute Plan to address problem: Consistent carbohydrate diet, sliding scale insulin therapy, Accu-Chek, hypoglycemia protocol, (3) Obesity hypoventilation syndrome Current Visit: Yes Status: Acute Plan to address problem: Balanced diet, increase physical activity discharge, outpatient pulmonary follow-up for sleep study, CPAP nightly (4) Hypothyroidism Current Visit: Yes Status: Acute Plan to address problem: Continue prehospital Synthroid therapy. (5) CKD (chronic kidney disease) Current Visit: Yes Status: Acute Plan to address problem: Outpatient nephrology follow-up, diabetes control. History Interval history: 56 YO Female with DM, HTN, Hypothyroidism, Obesity Hypoventilation Syndrome, CKD admitted to [facility] for psychiatric stabilization. Patient seen and evaluated in the recreation room. No reported nursing events. Patient denies pain. Hospitalist Physical - Constitutional Vitals: Temp Pulse Resp BP Pulse Ox 98.7 F 65 18 123/63 96 08/23/21 08:07 08/23/21 10:05 08/23/21 08:07 08/23/21 10:05 08/23/21 08:07 General appearance: Present: no acute distress, well-nourished - EENT Eyes: Present: PERRL ENT: hearing intact - Neck Neck: Present: supple - Respiratory Respiratory effort: normal Respiratory: bilateral: CTA - Cardiovascular Rhythm: regular Heart Sounds: Present: S1 & S2 - Extremities Extremities: no ischemia Peripheral Pulses: within normal limits - Abdominal General gastrointestinal: soft, non-tender, non-distended - Integumentary Integumentary: Present: clear, dry - Psychiatric Psychiatric: cooperative - Neurologic Neurologic: CNII-XII intact Results - Labs CBC & Chem 7: 08/21/21 08:46 08/21/21 08:46 Labs: Laboratory Last Values WBC 6.3 K/mm3 (4.5-11.0) 08/21/21 08:46 RBC 4.75 M/mm3 (3.65-5.03) 08/21/21 08:46 Hgb 13.7 gm/dl (10.1-14.3) 08/21/21 08:46 Hct 40.2 % (30.3-42.9) 08/21/21 08:46 MCV 85 fl (79-97) 08/21/21 08:46 MCH 29 pg (28-32) 08/21/21 08:46 MCHC 34 % (30-34) 08/21/21 08:46 RDW 15.2 % (13.2-15.2) 08/21/21 08:46 Plt Count 202 K/mm3 (140-440) 08/21/21 08:46 Lymph % (Auto) 21.7 % (13.4-35.0) 08/21/21 08:46 [place] % (Auto) 7.0 % (0.0-7.3) 08/21/21 08:46 Eos % (Auto) 5.5 % (0.0-4.3) H 08/21/21 08:46 Baso % (Auto) 0.8 % (0.0-1.8) 08/21/21 08:46 Lymph # (Auto) 1.4 K/mm3 (1.2-5.4) 08/21/21 08:46 [place] # (Auto) 0.4 K/mm3 (0.0-0.8) 08/21/21 08:46 Eos # (Auto) 0.3 K/mm3 (0.0-0.4) 08/21/21 08:46 Baso # (Auto) 0.1 K/mm3 (0.0-0.1) 08/21/21 08:46 Seg Neutrophils % 65.0 % (40.0-70.0) 08/21/21 08:46 Seg Neutrophils # 4.1 K/mm3 (1.8-7.7) 08/21/21 08:46 Sodium 139 mmol/L (137-145) 08/21/21 08:46 Potassium 5.6 mmol/L (3.6-5.0) H 08/21/21 08:46 Chloride 97.6 mmol/L (98-107) L 08/21/21 08:46 Carbon Dioxide 27 mmol/L (22-30) 08/21/21 08:46 Anion Gap 20 mmol/L 08/21/21 08:46 BUN 21 mg/dL (7-17) H 08/21/21 08:46 Creatinine 0.8 mg/dL (0.6-1.2) 08/21/21 08:46 Estimated GFR > 60 ml/min 08/21/21 08:46 BUN/Creatinine Ratio 26 % 08/21/21 08:46 Glucose 355 mg/dL (65-100) H 08/21/21 08:46 POC Glucose 411 mg/dL (70-105) H 08/23/21 11:21 Hemoglobin A1c 10.6 % (4-6) H 08/21/21 08:42 Calcium 10.1 mg/dL (8.4-10.2) 08/21/21 08:46 Total Bilirubin 0.40 mg/dL (0.1-1.2) 08/21/21 08:46 AST 14 units/L (5-40) 08/21/21 08:46 ALT 14 units/L (7-56) 08/21/21 08:46 Alkaline Phosphatase 124 units/L (35-129) 08/21/21 08:46 Total Protein 7.6 g/dL (6.3-8.2) 08/21/21 08:46 Albumin 4.1 g/dL (3.9-5) 08/21/21 08:46 Albumin/Globulin Ratio 1.2 % 08/21/21 08:46 Triglycerides 165 mg/dL (2-149) H 08/21/21 08:46 Cholesterol 226 mg/dL (50-199) H 08/21/21 08:46 LDL Cholesterol Direct 147 mg/dL (50-130) H 08/21/21 08:46 HDL Cholesterol 52 mg/dL (40-59) 08/21/21 08:46 Cholesterol/HDL Ratio 4.34 % 08/21/21 08:46 TSH 1.270 mlU/mL (0.270-4.200) 08/21/21 08:46 Lin/IV: Voiding Method Toilet Active Medications - Current Medications Current Medications: Generic Name Dose Route Start Last Admin Trade Name Freq PRN Reason Stop Dose Admin Apixaban 5 mg 08/21/21 10:00 08/23/21 10:04 Apixaban 5 Mg Tab PO 5 mg BID REBECA Administration Atorvastatin Calcium 20 mg 08/21/21 22:00 08/22/21 21:23 Atorvastatin 20 Mg Tab PO 20 mg QHS REBECA Administration Dextrose 50 ml 08/20/21 12:26 Dextrose 50% In Water (25gm) 50 Ml Syringe IV Q30MIN PRN Hypoglycemia Protocol Diltiazem HCl 60 mg 08/21/21 10:00 08/23/21 10:05 Diltiazem 60 Mg Tab PO 60 mg BID REBECA Administration Docusate Sodium 100 mg 08/21/21 10:00 Docusate Sodium 100 Mg Cap PO BID PRN Constipation Duloxetine HCl 60 mg 08/21/21 10:00 08/23/21 10:06 Duloxetine 30 Mg Cap PO 60 mg BID REBECA Administration Furosemide 40 mg 08/21/21 10:00 08/23/21 10:03 Furosemide 40 Mg Tab PO 40 mg DAILY REBECA Administration Gabapentin 300 mg 08/21/21 14:00 08/23/21 06:52 Gabapentin 300 Mg Cap PO 300 mg Q8HR REBECA Administration Haloperidol Lactate 5 mg 08/21/21 11:12 08/21/21 11:30 Haloperidol Lactate 5 Mg/1 Ml Inj IM 5 mg Q6H PRN Administration Agitation Insulin Glargine 45 units 08/23/21 08:00 08/23/21 10:12 Insulin Glargine 100 Units/Ml SUB-Q Not Given QAMDIAB [facility] Insulin Human Lispro 0 unit 08/21/21 14:00 08/23/21 10:06 Insulin Lispro 100 Unit/Ml SUB-Q Not Given Q6H REBECA Protocol Lamotrigine 200 mg 08/21/21 10:00 08/23/21 10:04 Lamotrigine 100 Mg Tab PO 200 mg BID REBECA Administration Levothyroxine Sodium 100 mcg 08/22/21 06:00 08/23/21 06:52 Levothyroxine 100 Mcg Tab PO 100 mcg DAILY@0600 REBECA Administration Lorazepam 2 mg 08/21/21 11:03 08/21/21 11:30 Lorazepam 2 Mg/Ml Vial IV 2 mg Q4H PRN Administration Agitation Metformin HCl 750 mg 08/21/21 10:00 08/23/21 10:04 Metformin 500 Mg Tab PO 750 mg QDAY REBECA Administration Metoprolol Tartrate 50 mg 08/21/21 10:00 08/23/21 10:05 Metoprolol Tartrate 50 Mg Tab PO 50 mg BID REBECA Administration Mirtazapine 15 mg 08/21/21 22:00 08/22/21 21:24 Mirtazapine 15 Mg Tab PO 15 mg HS REBECA Administration Miscellaneous Medication 1 each 08/22/21 10:00 08/23/21 10:06 Latuda 60 Mg Tab PO 1 each QDAY REBECA Administration Nystatin 1 applic 08/21/21 10:00 08/23/21 10:04 Nystatin Cream 15 Gm Tube TP 1 applic BID REBECA Administration Trazodone HCl 100 mg 08/21/21 22:00 08/22/21 21:22 Trazodone 100 Mg Tab PO 100 mg QHS REBECA Administration Trihexyphenidyl HCl 2 mg 08/21/21 10:00 08/23/21 10:05 Trihexyphenidyl 2 Mg Tab PO 2 mg DAILY REBECA Administration
--- NOTE | 2021-08-23 20:00 | Progress Note ---
Assessment and Plan - Patient Problems (1) Hypertension Current Visit: Yes Status: Acute Qualifiers: Hypertension type: primary hypertension Qualified Code(s): I10 - Essential (primary) hypertension Plan to address problem: Monitor blood pressure every shift, continue medical management. (2) Diabetes Current Visit: Yes Status: Acute Plan to address problem: Consistent carbohydrate diet, sliding scale insulin therapy, Accu-Chek, hypoglycemia protocol, (3) Obesity hypoventilation syndrome Current Visit: Yes Status: Acute Plan to address problem: Balanced diet, increase physical activity discharge, outpatient pulmonary follow-up for sleep study, CPAP nightly (4) Hypothyroidism Current Visit: Yes Status: Acute Plan to address problem: Continue prehospital Synthroid therapy. (5) CKD (chronic kidney disease) Current Visit: Yes Status: Acute Plan to address problem: Outpatient nephrology follow-up, diabetes control. History Interval history: 56 YO Female with DM, HTN, Hypothyroidism, Obesity Hypoventilation Syndrome, CKD admitted to [facility] for psychiatric stabilization. Patient seen and evaluated in the recreation room. No reported nursing events. Patient denies pain. Hospitalist Physical - Constitutional Vitals: Temp Pulse Resp BP Pulse Ox 98.7 F 65 18 123/63 96 08/23/21 08:07 08/23/21 10:05 08/23/21 08:07 08/23/21 10:05 08/23/21 08:07 General appearance: Present: no acute distress, well-nourished - EENT Eyes: Present: PERRL, EOM intact ENT: hearing decreased - Neck Neck: Present: supple - Respiratory Respiratory effort: normal Respiratory: bilateral: CTA - Cardiovascular Rhythm: regular Heart Sounds: Present: S1 & S2 - Extremities Extremities: no ischemia Peripheral Pulses: within normal limits - Abdominal General gastrointestinal: soft, non-tender, non-distended - Integumentary Integumentary: Present: clear, dry - Psychiatric Psychiatric: cooperative - Neurologic Neurologic: CNII-XII intact Results - Labs CBC & Chem 7: 08/21/21 08:46 08/21/21 08:46 Labs: Laboratory Last Values WBC 6.3 K/mm3 (4.5-11.0) 08/21/21 08:46 RBC 4.75 M/mm3 (3.65-5.03) 08/21/21 08:46 Hgb 13.7 gm/dl (10.1-14.3) 08/21/21 08:46 Hct 40.2 % (30.3-42.9) 08/21/21 08:46 MCV 85 fl (79-97) 08/21/21 08:46 MCH 29 pg (28-32) 08/21/21 08:46 MCHC 34 % (30-34) 08/21/21 08:46 RDW 15.2 % (13.2-15.2) 08/21/21 08:46 Plt Count 202 K/mm3 (140-440) 08/21/21 08:46 Lymph % (Auto) 21.7 % (13.4-35.0) 08/21/21 08:46 [place] % (Auto) 7.0 % (0.0-7.3) 08/21/21 08:46 Eos % (Auto) 5.5 % (0.0-4.3) H 08/21/21 08:46 Baso % (Auto) 0.8 % (0.0-1.8) 08/21/21 08:46 Lymph # (Auto) 1.4 K/mm3 (1.2-5.4) 08/21/21 08:46 [place] # (Auto) 0.4 K/mm3 (0.0-0.8) 08/21/21 08:46 Eos # (Auto) 0.3 K/mm3 (0.0-0.4) 08/21/21 08:46 Baso # (Auto) 0.1 K/mm3 (0.0-0.1) 08/21/21 08:46 Seg Neutrophils % 65.0 % (40.0-70.0) 08/21/21 08:46 Seg Neutrophils # 4.1 K/mm3 (1.8-7.7) 08/21/21 08:46 Sodium 139 mmol/L (137-145) 08/21/21 08:46 Potassium 5.6 mmol/L (3.6-5.0) H 08/21/21 08:46 Chloride 97.6 mmol/L (98-107) L 08/21/21 08:46 Carbon Dioxide 27 mmol/L (22-30) 08/21/21 08:46 Anion Gap 20 mmol/L 08/21/21 08:46 BUN 21 mg/dL (7-17) H 08/21/21 08:46 Creatinine 0.8 mg/dL (0.6-1.2) 08/21/21 08:46 Estimated GFR > 60 ml/min 08/21/21 08:46 BUN/Creatinine Ratio 26 % 08/21/21 08:46 Glucose 355 mg/dL (65-100) H 08/21/21 08:46 POC Glucose 374 mg/dL (70-105) H 08/23/21 16:07 Hemoglobin A1c 10.6 % (4-6) H 08/21/21 08:42 Calcium 10.1 mg/dL (8.4-10.2) 08/21/21 08:46 Total Bilirubin 0.40 mg/dL (0.1-1.2) 08/21/21 08:46 AST 14 units/L (5-40) 08/21/21 08:46 ALT 14 units/L (7-56) 08/21/21 08:46 Alkaline Phosphatase 124 units/L (35-129) 08/21/21 08:46 Total Protein 7.6 g/dL (6.3-8.2) 08/21/21 08:46 Albumin 4.1 g/dL (3.9-5) 08/21/21 08:46 Albumin/Globulin Ratio 1.2 % 08/21/21 08:46 Triglycerides 165 mg/dL (2-149) H 08/21/21 08:46 Cholesterol 226 mg/dL (50-199) H 08/21/21 08:46 LDL Cholesterol Direct 147 mg/dL (50-130) H 08/21/21 08:46 HDL Cholesterol 52 mg/dL (40-59) 08/21/21 08:46 Cholesterol/HDL Ratio 4.34 % 08/21/21 08:46 TSH 1.270 mlU/mL (0.270-4.200) 08/21/21 08:46 Lin/IV: Voiding Method Toilet Active Medications - Current Medications Current Medications: Generic Name Dose Route Start Last Admin Trade Name Freq PRN Reason Stop Dose Admin Apixaban 5 mg 08/21/21 10:00 08/23/21 10:04 Apixaban 5 Mg Tab PO 5 mg BID REBECA Administration Atorvastatin Calcium 20 mg 08/21/21 22:00 08/22/21 21:23 Atorvastatin 20 Mg Tab PO 20 mg QHS REBECA Administration Dextrose 50 ml 08/20/21 12:26 Dextrose 50% In Water (25gm) 50 Ml Syringe IV Q30MIN PRN Hypoglycemia Protocol Diltiazem HCl 60 mg 08/21/21 10:00 08/23/21 10:05 Diltiazem 60 Mg Tab PO 60 mg BID REBECA Administration Docusate Sodium 100 mg 08/21/21 10:00 Docusate Sodium 100 Mg Cap PO BID PRN Constipation Duloxetine HCl 60 mg 08/21/21 10:00 08/23/21 10:06 Duloxetine 30 Mg Cap PO 60 mg BID REBECA Administration Furosemide 40 mg 08/21/21 10:00 08/23/21 10:03 Furosemide 40 Mg Tab PO 40 mg DAILY REBECA Administration Gabapentin 300 mg 08/21/21 14:00 08/23/21 14:11 Gabapentin 300 Mg Cap PO 300 mg Q8HR REBECA Administration Haloperidol Lactate 5 mg 08/21/21 11:12 08/21/21 11:30 Haloperidol Lactate 5 Mg/1 Ml Inj IM 5 mg Q6H PRN Administration Agitation Insulin Glargine 45 units 08/23/21 08:00 08/23/21 10:12 Insulin Glargine 100 Units/Ml SUB-Q Not Given QAMDIAB [facility] Insulin Human Lispro 0 unit 08/21/21 14:00 08/23/21 10:06 Insulin Lispro 100 Unit/Ml SUB-Q Not Given Q6H REBECA Protocol Lamotrigine 200 mg 08/21/21 10:00 08/23/21 10:04 Lamotrigine 100 Mg Tab PO 200 mg BID REBECA Administration Levothyroxine Sodium 100 mcg 08/22/21 06:00 08/23/21 06:52 Levothyroxine 100 Mcg Tab PO 100 mcg DAILY@0600 REBECA Administration Lorazepam 2 mg 08/21/21 11:03 08/21/21 11:30 Lorazepam 2 Mg/Ml Vial IV 2 mg Q4H PRN Administration Agitation Metformin HCl 750 mg 08/21/21 10:00 08/23/21 10:04 Metformin 500 Mg Tab PO 750 mg QDAY REBECA Administration Metoprolol Tartrate 50 mg 08/21/21 10:00 08/23/21 10:05 Metoprolol Tartrate 50 Mg Tab PO 50 mg BID REBECA Administration Mirtazapine 15 mg 08/21/21 22:00 08/22/21 21:24 Mirtazapine 15 Mg Tab PO 15 mg HS REBECA Administration Miscellaneous Medication 1 each 08/22/21 10:00 08/23/21 10:06 Latuda 60 Mg Tab PO 1 each QDAY REBECA Administration Nystatin 1 applic 08/21/21 10:00 08/23/21 10:04 Nystatin Cream 15 Gm Tube TP 1 applic BID REBECA Administration Trazodone HCl 100 mg 08/21/21 22:00 08/22/21 21:22 Trazodone 100 Mg Tab PO 100 mg QHS REBECA Administration Trihexyphenidyl HCl 2 mg 08/21/21 10:00 08/23/21 10:05 Trihexyphenidyl 2 Mg Tab PO 2 mg DAILY REBECA Administration
[2021-08-23] MEDS: traZODone 100 MG TAB PO SCH (22:09)
[2021-08-23] MEDS: MIRTAZAPINE 15 MG TAB PO SCH (22:10)
[2021-08-24] MEDS: GABAPENTIN 300 MG CAP PO SCH ×3 (06:35→21:35)
[2021-08-24] MEDS: LEVOTHYROXINE 100 MCG TAB PO SCH (06:38)
--- NOTE | 2021-08-24 08:40 | Progress Note ---
Subjective Date of service: 08/24/21 Subjective Comment: 08/21/2021:The patient was seen in her room, she reports doing well. She reports that she is worried about her heart pills and blood thinner."She reports sleep and appetitie as good. She continues to endorse auditory hallucinations " I still hear whispers. She denies suicidal/homicidal hallucinations. 08/22/2021: The patient was seen socializing with peers at breakfast. She states she received her monthly Abilify Mainvannessana BASSETT through the ACT team; last had it a couple of days prior to this admission. The patient reports that she feels better, states sleep and appetite as good. The patient states mood as "ok". She denies any current suicidal/homicidal ideation and denies hallucinations. 08/23/2021: The patient was seen eating breakfast. She reports feeling better. She denies any current suicidal/homicidal ideation and denies hallucinations. 08/24/2021: She reports doing well. She denies any current suicidal/homicidal ideation and denies hallucinations. SOCIAL HISTORY Marital Status: Living Arrangements: lives alone with act team Employment Status: Disabled Access to guns/weapons: Denies Education: History of Abuse: Denies Legal History: unknown REVIEW OF SYSTEMS Constitutional: Negative for weight loss ENT: Negative for stridor Respiratory: Negative for cough or hemoptysis All other systems reviewed and are negative MENTAL STATUS EXAMINATION General Appearance and Behavior: Age appropriate, good hygiene, wearing appropriate clothes. calm, cooperative, fair eye contact Cooperation: Cooperative Psychomotor Behavior: Psychomotor normal Mood: "ok" Affect and affective range: Congruent with stated mood Thought Process: goal directed Thought Content: Not suicidal Speech: normal tone and pace Suicidal Ideation: Denies Homicidal Ideation:Denies Hallucinations: Denies Delusions: None elicited Impulse Control: limited Insight and Judgment: Limited Memory: Limited Attention: attentive Orientation: a/o Assessment (1) Bipolar Disorder Treatment Plan Patient admitted for inpatient psychiatric evaluation, medication adjustment and close monitoring The patient's behavior, mood, sleep and appetite will be closely monitored. Patient enrolled in individual and group therapeutic sessions and encouraged to attend. Patient provided with a safe and structured environment. Patient's physical health needs will be addressed by the Hospitalist. Hospitalist Consulted Labs including CBC, CMP, Lipid profile and Hemoglobin A1C levels ordered for baseline reference Social Assessment will be completed and the Tow Truck Dispatcher will work with patient and family to ensure a suitable and safe disposition Medication adjustment will be made as clinically indicated Continue home meds Usual Wellness Adventist/Preservation: - Start Trazodone 50 mg po QHS & 50 mg po QHS PRN between 10 PM & 2 AM for insomnia - Start Melatonin 5 mg po QHS to promote circadian rhythm The patient agreed on the treatment plan, understood the risk, benefit, alter point lay ira treatment, potential consequence of no treatment, and gave informed consent. Estimated days: 5 Post hospital care: primary care provider, psychiatric provider Case staffed with Dr. Ortiz Legal Status: Voluntary Reaction to Hospitalization: Accepting Medications and Allergies Medications and Allergies Allergies Allergy/AdvReac Type Severity Reaction Status Date / Time codeine Allergy Mild Nausea Verified 08/21/21 03:51 Sulfa (Sulfonamide Allergy Mild Nausea Verified 08/21/21 03:51 Antibiotics) Home Medications Medication Instructions Recorded Confirmed Last Taken Type Apixaban [Eliquis] 5 mg PO BID 08/21/21 08/21/21 Unknown History Diltiazem HCl [Diltiazem 12Hr ER] 60 mg PO BID 08/21/21 08/21/21 Unknown History Docusate Sodium [Colace] 100 mg PO BID PRN 08/21/21 08/21/21 Unknown History Duloxetine HCl [Drizalma Sprinkle] 60 mg PO BID 08/21/21 08/21/21 Unknown History Furosemide [Lasix] 40 mg PO DAILY 08/21/21 08/21/21 Unknown History Gabapentin [Neurontin] 300 mg PO Q8HR 08/21/21 08/21/21 Unknown History Levothyroxine [Synthroid] 100 mcg PO QAM 08/21/21 08/21/21 Unknown History Lurasidone HCl [Latuda] 60 mg PO DAILY 08/21/21 08/21/21 Unknown History Metformin HCl [Metformin HCl ER] 750 mg PO DAILY 08/21/21 08/21/21 Unknown History Metoprolol [Lopressor TAB] 50 mg PO BID 08/21/21 08/21/21 Unknown History Mirtazapine [Remeron] 15 mg PO HS 08/21/21 08/21/21 Unknown History Nystatin Cream [Mycostatin Cream] 1 applic TP BID 08/21/21 08/21/21 Unknown History Rosuvastatin Calcium [Crestor] 10 mg PO HS 08/21/21 08/21/21 Unknown History lamoTRIgine [LaMICtal] 200 mg PO BID 08/21/21 08/21/21 Unknown History traZODone [Desyrel] 100 mg PO QHS 08/21/21 08/21/21 Unknown History trihexyphenidyL [Artane Tab] 2 mg PO DAILY 08/21/21 08/21/21 Unknown History Active Meds: Active Medications Apixaban (Apixaban 5 Mg Tab) 5 mg PO BID [facility] Last Admin: 08/23/21 22:09 Dose: 5 mg Documented by: Atorvastatin Calcium (Atorvastatin 20 Mg Tab) 20 mg PO QHS [facility] Last Admin: 08/23/21 22:10 Dose: 20 mg Documented by: Dextrose (Dextrose 50% In Water (25gm) 50 Ml Syringe) 50 ml IV Q30MIN PRN; Protocol PRN Reason: Hypoglycemia Diltiazem HCl (Diltiazem 60 Mg Tab) 60 mg PO BID [facility] Last Admin: 08/23/21 22:05 Dose: 60 mg Documented by: Docusate Sodium (Docusate Sodium 100 Mg Cap) 100 mg PO BID PRN PRN Reason: Constipation Duloxetine HCl (Duloxetine 30 Mg Cap) 60 mg PO BID [facility] Last Admin: 08/23/21 22:08 Dose: 60 mg Documented by: Furosemide (Furosemide 40 Mg Tab) 40 mg PO DAILY [facility] Last Admin: 08/23/21 10:03 Dose: 40 mg Documented by: Gabapentin (Gabapentin 300 Mg Cap) 300 mg PO Q8HR [facility] Last Admin: 08/24/21 06:35 Dose: 300 mg Documented by: Haloperidol Lactate (Haloperidol Lactate 5 Mg/1 Ml Inj) 5 mg IM Q6H PRN PRN Reason: Agitation Last Admin: 08/21/21 11:30 Dose: 5 mg Documented by: Insulin Glargine (Insulin Glargine 100 Units/Ml) 45 units SUB-Q QAMDIAB [facility] Last Admin: 08/23/21 10:12 Dose: Not Given Documented by: Insulin Human Lispro (Insulin Lispro 100 Unit/Ml) 0 unit SUB-Q Q6H [facility]; Protocol Last Admin: 08/23/21 22:07 Dose: Not Given Documented by: Lamotrigine (Lamotrigine 100 Mg Tab) 200 mg PO BID [facility] Last Admin: 08/23/21 22:08 Dose: 200 mg Documented by: Levothyroxine Sodium (Levothyroxine 100 Mcg Tab) 100 mcg PO DAILY@0600 [facility] Last Admin: 08/24/21 06:38 Dose: 100 mcg Documented by: Lorazepam (Lorazepam 2 Mg/Ml Vial) 2 mg IV Q4H PRN PRN Reason: Agitation Last Admin: 08/21/21 11:30 Dose: 2 mg Documented by: Metformin HCl (Metformin 500 Mg Tab) 750 mg PO QDAY [facility] Last Admin: 08/23/21 10:04 Dose: 750 mg Documented by: Metoprolol Tartrate (Metoprolol Tartrate 50 Mg Tab) 50 mg PO BID [facility] Last Admin: 08/23/21 22:09 Dose: 50 mg Documented by: Mirtazapine (Mirtazapine 15 Mg Tab) 15 mg PO HS [facility] Last Admin: 08/23/21 22:10 Dose: 15 mg Documented by: Miscellaneous Medication (Latuda 60 Mg Tab) 1 each PO QDAY [facility] Last Admin: 08/23/21 10:06 Dose: 1 each Documented by: Nystatin (Nystatin Cream 15 Gm Tube) 1 applic TP BID [facility] Last Admin: 08/23/21 22:11 Dose: 1 applic Documented by: Trazodone HCl (Trazodone 100 Mg Tab) 100 mg PO QHS [facility] Last Admin: 08/23/21 22:09 Dose: 100 mg Documented by: Trihexyphenidyl HCl (Trihexyphenidyl 2 Mg Tab) 2 mg PO DAILY [facility] Last Admin: 08/23/21 10:05 Dose: 2 mg Documented by: Results - Results Labs/Vitals: Laboratory Last Values WBC 6.3 K/mm3 (4.5-11.0) 08/21/21 08:46 RBC 4.75 M/mm3 (3.65-5.03) 08/21/21 08:46 Hgb 13.7 gm/dl (10.1-14.3) 08/21/21 08:46 Hct 40.2 % (30.3-42.9) 08/21/21 08:46 MCV 85 fl (79-97) 08/21/21 08:46 MCH 29 pg (28-32) 08/21/21 08:46 MCHC 34 % (30-34) 08/21/21 08:46 RDW 15.2 % (13.2-15.2) 08/21/21 08:46 Plt Count 202 K/mm3 (140-440) 08/21/21 08:46 Lymph % (Auto) 21.7 % (13.4-35.0) 08/21/21 08:46 [facility] % (Auto) 7.0 % (0.0-7.3) 08/21/21 08:46 Eos % (Auto) 5.5 % (0.0-4.3) H 08/21/21 08:46 Baso % (Auto) 0.8 % (0.0-1.8) 08/21/21 08:46 Lymph # (Auto) 1.4 K/mm3 (1.2-5.4) 08/21/21 08:46 [facility] # (Auto) 0.4 K/mm3 (0.0-0.8) 08/21/21 08:46 Eos # (Auto) 0.3 K/mm3 (0.0-0.4) 08/21/21 08:46 Baso # (Auto) 0.1 K/mm3 (0.0-0.1) 08/21/21 08:46 Seg Neutrophils % 65.0 % (40.0-70.0) 08/21/21 08:46 Seg Neutrophils # 4.1 K/mm3 (1.8-7.7) 08/21/21 08:46 Sodium 139 mmol/L (137-145) 08/21/21 08:46 Potassium 5.6 mmol/L (3.6-5.0) H 08/21/21 08:46 Chloride 97.6 mmol/L (98-107) L 08/21/21 08:46 Carbon Dioxide 27 mmol/L (22-30) 08/21/21 08:46 Anion Gap 20 mmol/L 08/21/21 08:46 BUN 21 mg/dL (7-17) H 08/21/21 08:46 Creatinine 0.8 mg/dL (0.6-1.2) 08/21/21 08:46 Estimated GFR > 60 ml/min 08/21/21 08:46 BUN/Creatinine Ratio 26 % 08/21/21 08:46 Glucose 355 mg/dL (65-100) H 08/21/21 08:46 POC Glucose 401 mg/dL (70-105) H 08/24/21 06:07 Hemoglobin A1c 10.6 % (4-6) H 08/21/21 08:42 Calcium 10.1 mg/dL (8.4-10.2) 08/21/21 08:46 Total Bilirubin 0.40 mg/dL (0.1-1.2) 08/21/21 08:46 AST 14 units/L (5-40) 08/21/21 08:46 ALT 14 units/L (7-56) 08/21/21 08:46 Alkaline Phosphatase 124 units/L (35-129) 08/21/21 08:46 Total Protein 7.6 g/dL (6.3-8.2) 08/21/21 08:46 Albumin 4.1 g/dL (3.9-5) 08/21/21 08:46 Albumin/Globulin Ratio 1.2 % 08/21/21 08:46 Triglycerides 165 mg/dL (2-149) H 08/21/21 08:46 Cholesterol 226 mg/dL (50-199) H 08/21/21 08:46 LDL Cholesterol Direct 147 mg/dL (50-130) H 08/21/21 08:46 HDL Cholesterol 52 mg/dL (40-59) 08/21/21 08:46 Cholesterol/HDL Ratio 4.34 % 08/21/21 08:46 TSH 1.270 mlU/mL (0.270-4.200) 08/21/21 08:46 Last Vital Signs Temp 101.8 F H 08/23/21 19:56 Pulse 67 08/23/21 22:09 Resp 16 08/23/21 19:56 BP 144/72 08/23/21 22:09 Pulse Ox 97 08/23/21 19:56
[2021-08-24] MEDS: INSULIN GLARGINE 100 UNITS/ML SUB-Q SCH (08:41)
[2021-08-24] MEDS: INSULIN LISPRO 100 UNIT/ML SUB-Q SCH ×7 (08:41→21:33)
[2021-08-24] MEDS: metFORMIN 500 MG TAB PO SCH (08:45)
[2021-08-24] MEDS: APIXABAN 5 MG TAB PO SCH ×2 (09:48→21:35)
[2021-08-24] MEDS: TRIHEXYPHENIDYL 2 MG TAB PO SCH (09:48)
[2021-08-24] MEDS: DULoxetine 30 MG CAP PO SCH ×2 (09:48→21:36)
[2021-08-24] MEDS: lamoTRIgine 100 MG TAB PO SCH ×2 (09:49→21:36)
[2021-08-24] MEDS: FUROSEMIDE 40 MG TAB PO SCH (09:49)
[2021-08-24] MEDS: NYSTATIN CREAM 15 GM TUBE TP SCH ×2 (09:50→21:34)
[2021-08-24] MEDS: LATUDA 60 MG PO SCH (09:50)
--- NOTE | 2021-08-24 12:20 | Event Note ---
Date: 08/24/21 Received a call from Nursing about persistent hyperglycemia despite sliding scale and bolus insulin. Per nursing, the patient takes at least 50 units of lispro with meals at home. She was receiving 45 units of lantus and SSI while here. Lantus was increased to 60 units qday, an additional 10 units of lantus was given, and 5 units of lispro WM was added.
[2021-08-24] MEDS ORDERED: INSULIN GLARGINE 100 UNITS/ML SUB-Q ONE (14:00)
[2021-08-24] MEDS: dilTIAZem 60 MG TAB PO SCH ×2 (14:50→21:38)
[2021-08-24] MEDS: METOPROLOL TARTRATE 50 MG TAB PO SCH ×2 (14:51→21:36)
[2021-08-24] MEDS: MIRTAZAPINE 15 MG TAB PO SCH (21:35)
[2021-08-24] MEDS: traZODone 100 MG TAB PO SCH (21:36)
[2021-08-25] MEDS: INSULIN LISPRO 100 UNIT/ML SUB-Q SCH ×3 (02:10→08:50)
[2021-08-25] MEDS: LEVOTHYROXINE 100 MCG TAB PO SCH (05:28)
[2021-08-25] MEDS: GABAPENTIN 300 MG CAP PO SCH (05:28)
--- NOTE | 2021-08-25 07:47 | Discharge Summary ---
Providers - Providers Date of Admission: 08/20/21 00:23 Date of discharge: 08/25/21 Attending physician: DARRIUS WALKER MD 08/19/21 12:27 Consult to Physician [CONS] Routine Comment: Consulting Provider: ARLINE ANDINO Physician Instructions: Reason For Exam: medical conditions management Primary care physician: W[employer]OLDER Hospitalization Reason for admission: suicidal ideation Condition: Stable Hospital course: The patient was provided inpatient psychiatric treatment with safe and supportive environment, group/individual therapy, psychiatric medication, medication adjustment, adverse effect monitor, medical evaluation, medical treatment, social service assessment, social support meeting, placement assessment and psycho-education. The patients mood, cognition, behavior, motivation, compliance to treatment and appreciation on family/social support are improved and stabilized. At the time of discharge, the patient had no suicidal ideas, no homicidal ideas, no aggressive thoughts, no endangering behavior and no debilitating adverse effects. The patient agreed on the treatment plan, understood the risk, benefit, alternative treatment, potential consequence of no treatment, and gave informed consent. Progress Note: 08/21/2021:The patient was seen in her room, she reports doing well. She reports that she is worried about her heart pills and blood thinner."She reports sleep and appetitie as good. She continues to endorse auditory hallucinations " I still hear whispers. She denies suicidal/homicidal hallucinations. 08/22/2021: The patient was seen socializing with peers at breakfast. She states she received her monthly Abilify Maintenna BASSETT through the ACT team; last had it a couple of days prior to this admission. The patient reports that she feels better, states sleep and appetite as good. The patient states mood as "ok". She denies any current suicidal/homicidal ideation and denies hallucinations. 08/23/2021: The patient was seen eating breakfast. She reports feeling better. She denies any current suicidal/homicidal ideation and denies hallucinations. 08/24/2021: She reports doing well. She denies any current suicidal/homicidal ideation and denies hallucinations. Disposition: HOME / SELF CARE / HOMELESS Allergies/Adverse Reactions: Allergies codeine Allergy (Mild, Verified 08/21/21 03:51) Nausea Sulfa (Sulfonamide Antibiotics) Allergy (Mild, Verified 08/21/21 03:51) Nausea Vital Signs: Last Vital Signs Temp 99.0 F 08/24/21 21:00 Pulse 69 08/24/21 21:38 Resp 17 08/24/21 21:00 BP 122/54 08/24/21 21:38 Pulse Ox 96 08/24/21 21:00 Last Lab: Laboratory Last Values WBC 6.3 K/mm3 (4.5-11.0) 08/21/21 08:46 RBC 4.75 M/mm3 (3.65-5.03) 08/21/21 08:46 Hgb 13.7 gm/dl (10.1-14.3) 08/21/21 08:46 Hct 40.2 % (30.3-42.9) 08/21/21 08:46 MCV 85 fl (79-97) 08/21/21 08:46 MCH 29 pg (28-32) 08/21/21 08:46 MCHC 34 % (30-34) 08/21/21 08:46 RDW 15.2 % (13.2-15.2) 08/21/21 08:46 Plt Count 202 K/mm3 (140-440) 08/21/21 08:46 Lymph % (Auto) 21.7 % (13.4-35.0) 08/21/21 08:46 [place] % (Auto) 7.0 % (0.0-7.3) 08/21/21 08:46 Eos % (Auto) 5.5 % (0.0-4.3) H 08/21/21 08:46 Baso % (Auto) 0.8 % (0.0-1.8) 08/21/21 08:46 Lymph # (Auto) 1.4 K/mm3 (1.2-5.4) 08/21/21 08:46 [place] # (Auto) 0.4 K/mm3 (0.0-0.8) 08/21/21 08:46 Eos # (Auto) 0.3 K/mm3 (0.0-0.4) 08/21/21 08:46 Baso # (Auto) 0.1 K/mm3 (0.0-0.1) 08/21/21 08:46 Seg Neutrophils % 65.0 % (40.0-70.0) 08/21/21 08:46 Seg Neutrophils # 4.1 K/mm3 (1.8-7.7) 08/21/21 08:46 Sodium 139 mmol/L (137-145) 08/21/21 08:46 Potassium 5.6 mmol/L (3.6-5.0) H 08/21/21 08:46 Chloride 97.6 mmol/L (98-107) L 08/21/21 08:46 Carbon Dioxide 27 mmol/L (22-30) 08/21/21 08:46 Anion Gap 20 mmol/L 08/21/21 08:46 BUN 21 mg/dL (7-17) H 08/21/21 08:46 Creatinine 0.8 mg/dL (0.6-1.2) 08/21/21 08:46 Estimated GFR > 60 ml/min 08/21/21 08:46 BUN/Creatinine Ratio 26 % 08/21/21 08:46 Glucose 355 mg/dL (65-100) H 08/21/21 08:46 POC Glucose 324 mg/dL (70-105) H 08/25/21 05:57 Hemoglobin A1c 10.6 % (4-6) H 08/21/21 08:42 Calcium 10.1 mg/dL (8.4-10.2) 08/21/21 08:46 Total Bilirubin 0.40 mg/dL (0.1-1.2) 08/21/21 08:46 AST 14 units/L (5-40) 08/21/21 08:46 ALT 14 units/L (7-56) 08/21/21 08:46 Alkaline Phosphatase 124 units/L (35-129) 08/21/21 08:46 Total Protein 7.6 g/dL (6.3-8.2) 08/21/21 08:46 Albumin 4.1 g/dL (3.9-5) 08/21/21 08:46 Albumin/Globulin Ratio 1.2 % 08/21/21 08:46 Triglycerides 165 mg/dL (2-149) H 08/21/21 08:46 Cholesterol 226 mg/dL (50-199) H 08/21/21 08:46 LDL Cholesterol Direct 147 mg/dL (50-130) H 08/21/21 08:46 HDL Cholesterol 52 mg/dL (40-59) 08/21/21 08:46 Cholesterol/HDL Ratio 4.34 % 08/21/21 08:46 TSH 1.270 mlU/mL (0.270-4.200) 08/21/21 08:46 Core Measure Documentation - Palliative Care Palliative Care/ Comfort Measures: Not Applicable - Core Measures Any of the following diagnoses?: none Exam - Constitutional Vitals: Temp Pulse Resp BP Pulse Ox 99.0 F 69 17 122/54 96 08/24/21 21:00 08/24/21 21:38 08/24/21 21:00 08/24/21 21:38 08/24/21 21:00 Plan Activity: advance as tolerated Weight Bearing Status: Weight Bear as Tolerated Care Plan Goals: Maintain good and stable mental health. Plan of Treatment: The patient should be compliant with medications, not to use drugs and not to drink alcohol.The patient understands that if suicidal ideas, homicidal ideas, or any endangering thoughts/behavior arise, they should immediately seek for emergent assistance including but not limited to crisis hot line and emergency room. Follow up with outpatient Psychiatrist and PCP within 7 - 14 days of discharge. Follow up with: PRIMARY CARE,MD [Primary Care Provider] - 7 Days Prescriptions: traZODone [Desyrel] 100 mg PO QHS 30 Days #30 tablet DULoxetine [Cymbalta] 60 mg PO BID 30 Days #60 capsule Gabapentin 300 mg PO Q8HR 30 Days #90 capsule lamoTRIgine [LaMICtal] 200 mg PO BID 30 Days #60 tablet Mirtazapine [Remeron 15mg TAB] 15 mg PO HS 30 Days #30 tablet
[2021-08-25] MEDS: metFORMIN 500 MG TAB PO SCH (09:04)
[2021-08-25] MEDS: lamoTRIgine 100 MG TAB PO SCH (09:04)
[2021-08-25] MEDS: DULoxetine 30 MG CAP PO SCH (09:05)
[2021-08-25] MEDS: FUROSEMIDE 40 MG TAB PO SCH (09:06)
[2021-08-25 09:07] VITALS: BP 146/61
[2021-08-25] MEDS: APIXABAN 5 MG TAB PO SCH (09:07)
[2021-08-25] MEDS: dilTIAZem 60 MG TAB PO SCH (09:07)
[2021-08-25] MEDS: LATUDA 60 MG PO SCH (09:08)
[2021-08-25] MEDS: TRIHEXYPHENIDYL 2 MG TAB PO SCH (09:08)
[2021-08-25] MEDS: NYSTATIN CREAM 15 GM TUBE TP SCH (09:09)
[2021-08-25] MEDS: METOPROLOL TARTRATE 50 MG TAB PO SCH (09:16)
[2021-08-25] MEDS ORDERED: INSULIN GLARGINE 100 UNITS/ML SUB-Q SCH (10:00)
== END 2021-08-25 10:23 | disposition home or self-care (01) | DRG 885 ==
LOC: UNDOADMIN 12:15 → 3A 12:15 → 5A 08-20 00:23
PROVIDERS: ADMIT Psychiatry & Neurology Psychiatry; ATTEND Psychiatry & Neurology Psychiatry
DX: F31.9 Bipolar disorder, unspecified (principal); E66.2 Morbid (severe) obesity with alveolar hypoventilation; Z68.42 Body mass index [BMI] 45.0-49.9, adult; N18.9 Chronic kidney disease, unspecified; F41.9 Anxiety disorder, unspecified; I12.9 Hypertensive chronic kidney disease with stage 1 through stage 4 chronic kidney disease, or unspecified chronic kidney disease; E11.22 Type 2 diabetes mellitus with diabetic chronic kidney disease; Z83.3 Family history of diabetes mellitus; Z82.49 Family history of ischemic heart disease and other diseases of the circulatory system; E03.9 Hypothyroidism, unspecified; Z20.822 Contact with and (suspected) exposure to COVID-19
CPT/HCPCS: 36415; 80053; 80061; 82962; 83036; 84443; 85025; 94660; G0378; J1630; J1815; J2060